=== PATIENT | female | born 1965 | race Caucasian/White ===

== ENCOUNTER 2023-12-06 10:44 | Outpatient (CLI) | payer OTHER, SELFPAY | END 2023-12-06 10:45 | disposition home or self-care (01) | LOC: NFLDREF 12-07 10:58 | PROVIDERS: Visit Provider Nurse Practitioner Family | DX: R10.30 Lower abdominal pain, unspecified (principal); R82.90 Unspecified abnormal findings in urine | CPT/HCPCS: 87086 ==